=== PATIENT | male | born 1995 | race Hispanic/Latino ===

== ENCOUNTER 2021-01-25 04:08 | Emergency (ER) | payer OTHER ==
[~2021-01-25] VITALS: Ht 177.8 cm; Wt 113.4 kg
[2021-01-25 04:27] VITALS: BP 183/100
[2021-01-25] MEDS ORDERED: TETANUS/DIPHTHERIA TOXOID [ADULT] 0.5 ML VIAL IM SCH (05:15)
[2021-01-25 05:30] VITALS: BP 160/87
[2021-01-25] MEDS ORDERED: LIDOCAINE 1%-EPI 1:100,000 20 ML VIAL IJ SCH (05:30)
[2021-01-25] MEDS ORDERED: CYCLOBENZAPRINE HCL 10 MG TABLET ONE (05:45)
[2021-01-25] MEDS ORDERED: IBUPROFEN 600 MG TABLET ONE (05:45)
[2021-01-25] MEDS ORDERED: ACETAMINOPHEN-CODEINE 300/30MG TAB ONE (05:45)
[2021-01-25] MEDS ORDERED: LIDOCAINE HCL 1% 20 ML VIAL ONE (05:46)
[2021-01-25 06:30] VITALS: BP 146/81
[2021-01-25] MEDS ORDERED: SULFAMETHOX-TMP DS 800/160 TAB PO SCH (06:45)
[2021-01-25] MEDS ORDERED: SULFAMETHOX-TMP DS 800/160 TAB ONE (06:45)
[2021-01-25] MEDS ORDERED: NEOMY SULF/BACITRA/POLYMYXIN B 1 EACH PACKET TP SCH (07:00)
[2021-01-25] MEDS ORDERED: IBUPROFEN 600 MG TABLET PO SCH (07:02)
[2021-01-25] MEDS ORDERED: CYCLOBENZAPRINE HCL 10 MG TABLET PO ONE (07:02)
[2021-01-25] MEDS ORDERED: ACETAMINOPHEN-CODEINE 300/30MG TAB PO ONE (07:02)
[2021-01-25] MEDS ORDERED: SULF1TAB42 PO (07:06)
[2021-01-25] MEDS ORDERED: MELO7.5T12 PO (07:06)
[2021-01-25] MEDS ORDERED: CYCL10TA7 PO (07:06)
== END 2021-01-25 07:15 | disposition home or self-care (01) ==
LOC: EDH 05:16
DX: S51.011A Laceration without foreign body of right elbow, initial encounter (principal); S43.401A Unspecified sprain of right shoulder joint, initial encounter; Y04.8XXA Assault by other bodily force, initial encounter; Y93.89 Activity, other specified; Y92.89 Other specified places as the place of occurrence of the external cause; Y99.8 Other external cause status
CPT/HCPCS: 12002; 73030; 73070; 90471; 90714

== ENCOUNTER 2025-01-01 14:59 | Emergency (ER) | payer BC ==
[~2025-01-01] VITALS: Ht 177.8 cm; Wt 104.3 kg
[~2025-01-01 14:59] MED LIST: CYCL-309 PO; MELO7.5T12 PO; SULF1TAB42 PO
[2025-01-01] MEDS: ketOROlac 30MG VIAL (30MG/ML) IM ONE (15:46)
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
--- NOTE | 2025-01-01 15:59 | HMCIMG ---
Exam Type: ANKLE COMP 3VWS LT Clinical Information: pain Comparison: None Findings: Routine views of the ankle reveal no evidence of acute fracture or dislocation. The ankle mortise is intact. There is soft tissue swelling over the lateral malleolus consistent with inversion injury. IMPRESSION: Evidence of inversion injury.
[2025-01-01 16:11] VITALS: BP 156/89; PULSE 89; RESP 20; TEMP 97.9; O2SAT 98
--- NOTE | 2025-01-01 16:25 | HMCIMG ---
Exam Type: CHEST 1VW Clinical Information: pain Comparison: None Findings: The lungs are clear of infiltrates. The heart is normal in size. The bony and soft tissue structures of the chest are unremarkable. Impression: Clear lungs.
== END 2025-01-01 16:15 | disposition home or self-care (01) ==
LOC: EDH 14:59 → EEVIPCON 14:59 → EDH 16:15
DX: S93.402A Sprain of unspecified ligament of left ankle, initial encounter (principal); R07.89 Other chest pain; E11.9 Type 2 diabetes mellitus without complications; E78.00 Pure hypercholesterolemia, unspecified; I10 Essential (primary) hypertension; J45.909 Unspecified asthma, uncomplicated; Y04.0XXA Assault by unarmed brawl or fight, initial encounter; Y93.89 Activity, other specified; Y92.89 Other specified places as the place of occurrence of the external cause; Y99.8 Other external cause status
CPT/HCPCS: 99284; 71045; 73610; 96372; J1885